=== PATIENT | male | born 1950 | race African-American/Black ===

== ENCOUNTER → 2016-08-04 | Outpatient (CLI) | payer MEDICARE, BC ==
[2016-08-04 10:21] LABS: Non-African American GFR(MDRD) >60 (>60 ml/min/1.73 sqM)
--- NOTE | 2016-08-04 12:14 | MR ---
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 Ringing sensation and hearing loss right ear per patient. TECHNIQUE: Multiplanar, multisequence images of the brain and brainstem is performed without and with IV contras t, utilizing 18 mL intravenous MultiHance . Acoustic nerve disorder protocol. FINDINGS: Diffusion weighted images demonstrate no evidence of a recent infarct or other diffusion ab normality. There is no worrisome extra-axial fluid collection. The ventricular system and cisternal spaces are normal in size and appearance. The brain volume is age appropriate. Some scattered small foci of T2 hyperintensity are seen throughout the white matter bilaterally. Approximately 15 lesions all measuring 5mm or smaller in size are felt present. Lesions are nonspecific in appearance and dis tribution but presumed on basis of product of chronic small vessel ischemic change in patient this ag e. Midline structures demonstrate normal morphology. The craniocervical junction appears within normal limits. Normal vascular signal voids are present. The dural venous sinuses appear patent. The visuali zed paranasal sinuses are clear and the globes are intact bilaterally. No suspicious fluid signal seen in mastoid air cells bilaterally. Vestibulocochlear complexes are sym metric and felt within normal limits. There is no abnormal enhancing cerebellopontine angle mass iden tified bilaterally. IMPRESSION: 1. Mild nonspecific white matter changes presumed on basis of product of chronic small vessel ischemi c change in patient of this age. 2. No significant finding on dedicated IAC imaging is identified to account for patient's right-sided hearing loss.
== END | disposition home or self-care (01) ==
LOC: RADMRIMAIN 09:57
PROVIDERS: ATTEND Otolaryngology
DX: R90.82 White matter disease, unspecified (principal)
CPT/HCPCS: 82565; 70553; A9577